=== PATIENT | male | born 1995 | race American Indian/Alaskan Native ===

== ENCOUNTER 2019-12-24 08:20 | Emergency (ER) | payer SELFPAY ==
--- NOTE | 2019-12-24 09:08 | XRay Report ---
CHEST 1 VIEW INDICATION / CLINICAL INFORMATION: MAIN. COMPARISON: None available. FINDINGS: SUPPORT DEVICES: None. HEART / MEDIASTINUM: No significant abnormality. LUNGS / PLEURA: No significant pulmonary or pleural abnormality.. No pneumothorax. ADDITIONAL FINDINGS: No significant additional findings. IMPRESSION: 1. No acute findings. Signer Name: Rigo Turner MD Signed: 12/24/2019 9:03 AM Workstation Name: [id number]
--- NOTE | 2019-12-24 10:46 | Emergency Department Report ---
ED Chest Pain HPI - General Chief Complaint: Chest Pain Stated Complaint: CHEST/BACK PAIN Time Seen by Provider: 12/24/19 10:38 Source: patient Mode of arrival: Ambulatory Limitations: No Limitations - History of Present Illness Initial Comments: Mr. Crenshaw is a 24 years old male with no significant past medical history except asthma when he was a child. Patient presented to the ER complaining of substernal chest pain started last night all of a sudden while he was in bed continue for a few minutes and went away. Patient is chest pain-free since then. Patient stated that pain radiated to his neck and associated with shortness of breath. Patient describes his pain as aching and pressure at that moment. He denied any fever or chills. Patient also denied any nausea, vomiting or abdominal pain. MD Complaint: chest pain -: Last night Onset: during rest Pain Location: substernal Pain Radiation: neck Severity: moderate Severity scale (0 -10): 5 Quality: aching, pressure Improves With: nothing Worsens With: nothing Treatments Prior to Arrival: none - Related Data Allergies Allergy/AdvReac Type Severity Reaction Status Date / Time No Known Allergies Allergy Unverified 12/24/19 08:23 Heart Score - HEART Score History: Slightly suspicious EKG: Normal Age: < 45 Risk factors: No known risk factors Troponin: < normal limit HEART Score: 0 - Critical Actions Critical Actions: 0-3 pts:0.9-1.7%risk of adverse cardiac event.Candidate for discharge ED Review of Systems ROS: Stated complaint: CHEST/BACK PAIN Other details as noted in HPI Comment: All other systems reviewed and negative Constitutional: denies: chills, fever Respiratory: shortness of breath. denies: cough, orthopnea, SOB with exertion, SOB at rest, wheezing Cardiovascular: chest pain. denies: palpitations Gastrointestinal: denies: abdominal pain, nausea, vomiting, diarrhea, constipation, hematemesis, melena, hematochezia Musculoskeletal: denies: back pain Neurological: denies: headache, weakness, numbness, paresthesias, confusion ED Past Medical Hx - Past Medical History Previous Medical History?: No - Surgical History Past Surgical History?: No - Social History Smoking Status: Never Smoker Substance Use Type: None ED Physical Exam - General Limitations: No Limitations General appearance: alert, in no apparent distress - Head Head exam: Present: atraumatic, normocephalic, normal inspection - Eye Eye exam: Present: normal appearance, PERRL - ENT ENT exam: Present: normal exam, normal orophraynx, mucous membranes moist - Neck Neck exam: Present: normal inspection, full ROM. Absent: tenderness, meningismus, lymphadenopathy, thyromegaly - Respiratory Respiratory exam: Present: normal lung sounds bilaterally - Cardiovascular Cardiovascular Exam: Present: regular rate, normal rhythm, normal heart sounds - GI/Abdominal GI/Abdominal exam: Present: soft, normal bowel sounds. Absent: distended, tenderness, guarding, rebound, rigid, organomegaly, mass, hernia - Extremities Exam Extremities exam: Present: normal inspection, full ROM, normal capillary refill. Absent: pedal edema, calf tenderness - Back Exam Back exam: Present: normal inspection, full ROM. Absent: CVA tenderness (R), CVA tenderness (L) - Neurological Exam Neurological exam: Present: alert, oriented X3, CN II-XII intact, normal gait, reflexes normal. Absent: motor sensory deficit - Psychiatric Psychiatric exam: Present: normal mood - Skin Skin exam: Present: warm, intact, normal color ED Course Vital Signs 12/24/19 12/24/19 08:24 10:45 Temperature 98.5 F Pulse Rate 114 H Respiratory 18 18 Rate Blood Pressure 137/90 O2 Sat by Pulse 96 99 Oximetry ED Medical Decision Making - Lab Data Result diagrams: 12/24/19 10:49 12/24/19 10:49 - EKG Data -: EKG Interpreted by Ia EKG shows normal: sinus rhythm Rate: normal - EKG Data Interpretation: no acute changes - Radiology Data Radiology results: report reviewed - Medical Decision Making Mr. Crenshaw is a 24 years old male with no significant past medical history except asthma when he was a child. Patient presented to the ER complaining of substernal chest pain started last night all of a sudden while he was in bed continue for a few minutes and went away. Patient is chest pain-free since then. Patient stated that pain radiated to his neck and associated with shortness of breath. Patient describes his pain as aching and pressure at that moment. He denied any fever or chills. Patient also denied any nausea, vomiting or abdominal pain. Patient remained asymptomatic in the emergency room. EKG is unremarkable. Labs reviewed and is unremarkable except for elevated d-dimer. Patient had a CTA chest showed no evidence of PE or any other abnormalities. Troponin is negative. Patient strongly advised to follow-up with his primary doctor for further management and also advised to return to the ER if he develop any new symptoms. Critical care attestation.: If time is entered above; I have spent that time in minutes in the direct care of this critically ill patient, excluding procedure time. ED Disposition Clinical Impression: Acute chest pain Disposition: DC-01 TO HOME OR SELFCARE Is pt being admited?: No Condition: Stable Instructions: Chest Pain (ED) Referrals: NITZA MCHUGH MD [Primary Care Provider] - 3-5 Days
[2019-12-24 11:20] LABS: Basophils % (Auto) 0.4 % (0.0-1.8); Eosinophils % (Auto) 0.1 % (0.0-4.3); Lymphocytes # (Auto) 1.4 K/mm3 (1.2-5.4); Mean Corpuscular HGB Conc 36 % (32-34); Mean Corpuscular Volume 87 fl (84-94); Monocytes # (Auto) 0.7 K/mm3 (0.0-0.8); Monocytes % (Auto) 8.3 % (0.0-7.3); Platelet Count 225 K/mm3 (140-440); Red Blood Count 4.87 M/mm3 (3.65-5.03)
[2019-12-24 11:27] LABS: Hematocrit 42.4 % (35.5-45.6); Hemoglobin 15.2 gm/dl (11.8-15.2)
[2019-12-24 11:38] LABS: BUN/Creatinine Ratio 9; Blood Urea Nitrogen 11 mg/dL (9-20); Calcium 9.8 mg/dL (8.4-10.2); Hemolysis Index 14
--- NOTE | 2019-12-24 12:53 | Cat Scan Report ---
CTA CHEST WITH CONTRAST INDICATION / CLINICAL INFORMATION: MAIN: CHEST PAIN WITH SOB X2DAYS [id number] 100ML. TECHNIQUE: Axial CT images were obtained through the chest after injection of 100 cc Omnipaque 350 IV contrast. 3 plane MIP and/or 3D reconstructions were produced. All CT scans at this location are performed usin g CT dose reduction for ALARA by means of automated exposure control. COMPARISON: Chest radiograph 12/24/2019 FINDINGS: PULMONARY ARTERIES: No pulmonary emboli. THORACIC AORTA: No significant abnormality. HEART: No significant abnormality. MEDIASTINUM / AL: No significant abnormality. PLEURA: No pleural effusion. No pneumothorax. LUNGS: No acute air space or interstitial disease. UPPER ABDOMEN: No acute findings. SKELETAL STRUCTURES: No significant osseous abnormality. ADDITIONAL FINDINGS: None. IMPRESSION: 1. No CT evidence for pulmonary embolism. 2. No acute findings. Signer Name: Omar White MD Signed: 12/24/2019 12:48 PM Workstation Name: [id number]
[2019-12-24 13:11] VITALS: BP 134/80
== END 2019-12-24 13:05 | disposition home or self-care (01) ==
LOC: ED 08:20
DX: R07.89 Other chest pain (principal); J45.909 Unspecified asthma, uncomplicated
CPT/HCPCS: 36415; 71045; 71275; 80048; 84484; 85025; 85379; 93005; 99284; Q9967